=== PATIENT | male | born 1945 | race African-American/Black ===

== ENCOUNTER 2019-03-11 08:20 | Inpatient (IN) ==
--- NOTE | 2019-03-11 08:40 | Diag Imaging Result Doc PS360 ---
CT HEAD W/O CONTRAST - 03/11/2019 INDICATION: ams COMPARISON: 09/11/2017 FINDINGS: There is stable severe diffuse cerebral atrophy. There is stable severe diffuse chronic microvascular ischemia. Stable large area of old encephalomalacia centered at the right parietal lobe. No intracranial mass or hemorrhage. The skull is intact. The sinuses are clear. IMPRESSION: No acute process. This exam was performed using automated exposure control, adjustment of mA or kV according to patient size, and/or use of iterative reconstruction technique Electronically signed by Rai Solomon 03/11/2019 8:37 AM
--- NOTE | 2019-03-11 09:33 | EKG Report ---
Test Performed on : 03/11/2019 08:42:18 AM Test Reason : Stroke like symptoms Blood Pressure : / mmHG Vent. Rate : 076 BPM Atrial Rate : 076 BPM P-R Int : 142 ms QRS Dur : 074 ms QT Int : 374 ms P-R-T Axes : 064 -17 023 degrees QTc Int : 420 ms Normal sinus rhythm. Normal ECG When compared with ECG of 11-SEP-2017 13:08, No significant change was found Unconfirmed Result
--- NOTE | 2019-03-11 09:42 | Diag Imaging Result Doc PS360 ---
EXAM: CHEST-PORTABLE 03/11/2019 HISTORY: stroke like symptoms TECHNIQUE: AP portable at 0937 COMMENT: The inspiration is less optimal than on 10/13/2017. There are some platelike opacity present in the medial left lower lobe. IMPRESSION: Minimal left lower lobe atelectasis. Electronically signed by Ryley Bradford 03/11/2019 9:39 AM
[2019-03-11 10:11] LABS: BASO# 0.04 X1000 (0.0-0.2); BASO% 0.4 % (0.0-0.8); EOS# 0.32 X1000 (0.0-0.7); EOS% 3.5 % (0.0-10.0); HEMATOCRIT 46.1 % (42.0-52.0); HEMOGLOBIN 14.4 g/dL (14.0-18.0); IMM GRAN# 0.02 X1000 (0.0-0.04); IMM GRAN% 0.2 % (0.0-0.5); LYMPH# 1.98 X1000 (1.2-3.4); LYMPH% 21.6 % (20.5-51.1); MCH 28.1 PG (27-31); MCHC 31.2 g/dL (33-37); MCV 89.9 FL (81-99); MONO# 0.49 X1000 (0.11-0.59); MONO% 5.4 % (1.7-9.3); MPV 9.2 FL (7.4-10.4); NEUT% 68.9 % (42.2-75.2); PLT 226 X1000 (130-400); RBC 5.13 XMIL (4.7-6.1); RDW 14.8 % (11.5-14.5); WBC 9.15 X1000 (4.8-10.8)
[2019-03-11 10:58] LABS: ALB/GLOB RATIO 0.9; ALBUMIN 3.5 g/dL (3.5-5.0); CALCIUM 9.3 mg/dL (8.8-10.2); CREATININE 1.5 mg/dL (0.7-1.2); POTASSIUM 5.2 mmol/L (3.5-5.1); TOTAL BILIRUBIN 0.23 mg/dL (0.20-1.00); TOTAL PROTEIN 7.4 g/dL (6.3-8.3)
[2019-03-11 11:55] LABS: INR 1.12; PROTIME 14.6 Seconds (11.0-16.0)
[2019-03-11 11:56] LABS: PTT 36.8 Seconds (22.3-41.8)
--- NOTE | 2019-03-11 13:18 | PROVIDER DOCUMENTATION ---
This chart was entered by Randi Padilla Scribe, acting as scribe for Len Bran MD. HPI-Neurological Disorder - General Chief Complaint: Stroke-Like Symptoms Stated Complaint: AMS Time Seen by Provider: 03/11/19 08:58 Source: patient, family (daughter) Allergies/Adverse Reactions: Patient Allergies Allergy/AdvReac Type Severity Reaction Status Date / Time No Known Allergies Allergy Verified 12/24/18 11:27 Home Medications: Home Medication List Medication Instructions Recorded Confirmed Last Taken Type Clopidogrel [Plavix] 75 mg PO DAILY #0 tablet 09/21/13 03/11/19 03/10/19 09:15 Rx 75 mg PRAVAstatin [Pravachol] 40 mg PO DAILY 05/25/17 03/11/19 03/10/19 09:15 History 40 mg Pantoprazole [Protonix] 40 mg PO QAM 05/25/17 03/11/19 03/10/19 06:00 History 40 mg Aspirin 81 mg PO DAILY chewtab 10/17/17 03/11/19 03/10/19 09:15 Rx 81 mg Cetirizine HCl [Zyrtec] 10 mg PO DAILY 12/24/18 03/11/19 03/10/19 09:15 History 10 mg Ferrous Sulfate [Iron] 325 mg PO DAILY 12/24/18 03/11/19 03/10/19 09:15 History 325 mg Gabapentin 100 mg PO TID 12/24/18 03/11/19 03/10/19 21:00 History Insulin Aspart [Novolog Flexpen] 1 dose SQ PRN PRN 12/24/18 03/11/19 03/11/19 06:25 History 0 units FS 74 Insulin Glargine,Hum.rec.anlog 15 units SQ QHS 12/24/18 03/11/19 03/10/19 21:00 History [Lantus Solostar] 15 units Insulin Glargine,Hum.rec.anlog 40 unit SQ QAM 12/24/18 03/11/19 03/10/19 09:15 History [Lantus Solostar] 40 units Polyethylene Glycol 3350 [Miralax] 1 dose PO DAILY 12/24/18 03/11/19 03/10/19 09:15 History 17 gm Tramadol [Ultram] 50 mg PO Q12H PRN 12/24/18 03/11/19 03/03/19 00:50 History 50 mg Acetaminophen 650 mg PO Q6H PRN PRN 03/11/19 03/11/19 Unknown History Emollient Combination No.114 85 gm TOPICAL BID 03/11/19 03/11/19 03/10/19 21:00 History [Eucerin Advanced Repair] Hydrochlorothiazide 12.5 mg PO DAILY 03/11/19 03/11/19 03/10/19 09:15 History 12.5 mg Magnesium Hydroxide [Milk of 30 ml PO DAILY PRN PRN 03/11/19 03/11/19 Unknown History Magnesia] Meloxicam 7.5 mg PO DAILY 03/11/19 03/11/19 03/10/19 16:31 History 7.5 mg - History of Present Illness-Neuro Nature of Presenting Problem: 73yom presents to ED by EMS from [facility] where he resides cc AMS & new weakness. Daughter is at bedside and reports she was called to the [place] this morning b/c pt wasn't up at 4am as usual and when staff went to check on him he had new weakness by not being able to squeeze their hands or open eyes completely and AMS. Pt denies any pain. Pt has some right side weakness from a previous stroke but no new weakness upon exam. Pt has hx of DM/HTN/CVAx6 and renal insufficiency. Pt is A&Ox3 upon exam. Severity: reports: moderate Onset/Duration: reports: this morning Timing: reports: gone now Context: reports: other (AMS, new weakness) Character of Altered Mental Status: reports: decreased responsiveness Any recent trauma/injury?: reports: none Character of Deficits: reports: new weakness Cognitive Baseline: alert, oriented x3 Associated Symptoms: reports: denies symptoms Similar Symptoms Previously?: Yes Recently seen or treated by another doctor?: No Review of Systems - Adult - REVIEW OF SYSTEMS - ADULT Constitutional: reports: see HPImatthew. denies: chills, fever Eyes: reports: no symptoms reported Ears, Nose, Mouth & Throat: reports: no symptoms reported Cardiovascular: reports: see HPI. denies: chest pain, palpitations Respiratory: reports: see HPI. denies: shortness of breath, wheezing Gastrointestinal: reports: no symptoms reported Genitourinary: reports: no symptoms reported Musculoskeletal: reports: no symptoms reported Integumentary: reports: no symptoms reported Neurological: reports: see HPI, other (AMS, new weakness). denies: slurred speech Psychiatric: reports: no symptoms reported Endocrine: reports: no symptoms reported Hematologic/Lymphatic: reports: no symptoms reported Allergic/Immunologic: reports: no symptoms reported All Other Systems: Reviewed and Negative Past History - Adult - PAST MEDICAL HISTORY-ADULT Review of Records: reports: Old Records Reviewed, Nursing Assessment Review, Medications Reviewed, Social history reviewed & non-contributory. Major Childhood Illnesses: reports: denies history Cardiovascular: reports: HTN, hyperlipidemia Respiratory: reports: denies history Gastrointestinal: reports: denies history Obstetrical/Gynecological: reports: denies history Genitourinary: reports: prostate cancer Musculoskeletal: reports: denies history Neurological: reports: CVA, stroke deficits, TIA Endocrine/Immune: reports: Diabetes Other Conditions: reports: denies history - PRIOR SURGERIES/PROCEDURES Surgical/Procedure History: reports: other - PRIOR HOSPITALIZATIONS Prior Hospitalizations: reports: for similar symptoms - IMMUNIZATION STATUS Childhood Immunizations: See Nurse Assessment Flu Vaccine: See Nurse Assessment - FAMILY HISTORY Family History: reviewed, not pertinent - SOCIAL HISTORY Smoking: quit greater than 1 year Physical Exam- Neurological - Physical Exam-Neuro Initial Vital Signs Reviewed: Yes General Appearance: appears well, alert, no apparent distress. negative: anxious, combative Eye Exam: bilateral eye: normal inspection, PERRL HENMT: normocephalic/atraumatic, moist mucous membranes. negative: angioedema Head Injury: no evidence of injury. negative: active bleeding, Christine's Sign, contusions, ecchymosis, raccoon eyes Neck: normal inspection Respiratory: chest non-tender, lungs clear, normal breath sounds. negative: crackles, rhonchi, wheezing Cardiovascular: normal peripheral pulses, regular rate, rhythm, no edema. negative: bradycardia, tachycardia Abdominal Exam: normal bowel sounds, non tender, soft. negative: guarding, rigid, rebound Extremity: normal inspection. negative: deformity graphic manager Exam: normal hearing, normal speech, PERRL, other (unchanged from baseline) Motor/Sensory: no sensory deficit, no pronator drift Neurologic: graphic manager II-XII nml as tested, grossly normal. negative: facial droop Integumentary: normal color. negative: diaphoresis, jaundice Psych/Mental Status: normal mood/affect, oriented x 3. negative: anxious, disheveled - Glascow Coma Scale Best Eye Response: (4) open spontaneously Best Verbal Response: (5) oriented Best Motor Response: (6) obeys commands Total Glascow Score: 15 Progress - PLAN OF CARE/RESULTS Progress/Plan/Lab Results: Vital Signs - 8 hr 03/11/19 08:37 Temperature 97.8 F Pulse Rate 80 Respiratory Rate 22 Blood Pressure 155/80 O2 Sat by Pulse Oximetry 98 Laboratory Results - last 24 hr 03/11/19 03/11/19 03/11/19 09:00 10:06 10:06 WBC 9.15 RBC 5.13 Hgb 14.4 Hct 46.1 MCV 89.9 MCH 28.1 MCHC 31.2 L RDW Std Deviation 14.8 H Plt Count 226 MPV 9.2 Immature Gran % (Auto) 0.2 Neut % (Auto) 68.9 Lymph % (Auto) 21.6 Milam % (Auto) 5.4 Eos % (Auto) 3.5 Baso % (Auto) 0.4 Immature Gran # (Auto) 0.02 Neut # (Auto) 6.30 Lymph # (Auto) 1.98 Milam # (Auto) 0.49 Eos # (Auto) 0.32 Baso # (Auto) 0.04 PT INR PTT (Actin FS) Sodium 140 Potassium 5.2 H Chloride 108 H Carbon Dioxide 18 L Anion Gap 14 BUN 20 Creatinine 1.5 H Estimated GFR/1.73 m2 55 BUN/Creatinine Ratio 13 Glucose 77 POC Glucose 81 Calculated Osmolality 281 Calcium 9.3 Total Bilirubin 0.23 AST 20 ALT 9 L Alkaline Phosphatase 99 Troponin T High Sens Total Protein 7.4 Albumin 3.5 Globulin 3.9 Albumin/Globulin Ratio 0.9 03/11/19 03/11/19 10:06 11:37 WBC RBC Hgb Hct MCV MCH MCHC RDW Std Deviation Plt Count MPV Immature Gran % (Auto) Neut % (Auto) Lymph % (Auto) Milam % (Auto) Eos % (Auto) Baso % (Auto) Immature Gran # (Auto) Neut # (Auto) Lymph # (Auto) Milam # (Auto) Eos # (Auto) Baso # (Auto) PT 14.6 INR 1.12 PTT (Actin FS) 36.8 Sodium Potassium Chloride Carbon Dioxide Anion Gap BUN Creatinine Estimated GFR/1.73 m2 BUN/Creatinine Ratio Glucose POC Glucose Calculated Osmolality Calcium Total Bilirubin AST ALT Alkaline Phosphatase Troponin T High Sens 35 H* Total Protein Albumin Globulin Albumin/Globulin Ratio Orders Category Date Time Status Cardiac Monitoring DIRECTED Care 03/11/19 09:23 Active Finger Stick Blood Sugar (ED) DIRECTED Care 03/11/19 09:23 Completed Oxygen Therapy- ED Nursing DIRECTED Care 03/11/19 09:23 Active Saline Loc NOW Care 03/11/19 09:23 Active CHEST-PORTABLE [RAD] Stat Exams 03/11/19 09:[address] HEAD W/O CONTRAST [CT] Stat Exams 03/11/19 08:24 Completed CBC WITH ELECTRONIC DIFF [HEME] Stat Lab 03/11/19 10:06 Completed COMPREHENSIVE METABOLIC PANEL [CHEM] Stat Lab 03/11/19 10:06 Completed POTASSIUM [CHEM] Stat Lab 03/11/19 13:18 Uncollected PROTIME WITH INR [COAG] Stat Lab 03/11/19 11:37 Completed PTT [COAG] Stat Lab 03/11/19 11:37 Completed TROPONIN T HIGH SENSITIVITY Stat Lab 03/11/19 10:06 Completed URINALYSIS W/POSS RFLX CULT [URINALYSIS] Stat Lab 03/11/19 09:23 Uncollected URINE DRUG SCREEN Stat Lab 03/11/19 09:23 Uncollected Aspirin Med 03/11/19 13:19 Discontinued 325 mg PO NOW ONE EKG [EKG] Stat Ther 03/11/19 09:23 Draft At recheck, pt denied any other symptoms and feels back to normal. Family noted that he seems back to normal as well. Result Diagrams: 03/11/19 10:06 03/11/19 10:06 - EKG 1 Time of EKG reading by physician:: 08:42 EKG Read and Signed by:: Len Bran EKG Interpretation (*Must complete 3 of following elements*): Normal Rate: 76 Rhythm: NSR QRS: normal [place] Interval: normal - XRAY 1 XRAY: Bilateral XRAY Study: Chest Impression: See EMR Report (IMPRESSION: Minimal left lower lobe atelectasis. Electronically signed by Ryley Bradford 03/11/2019 9:39 AM) - CT/MRI 1 CT Study: Head Impression: See EMR Report (IMPRESSION: No acute process. This exam was performed using automated exposure control, adjustment of mA or kV according to patient size, and/or use of iterative reconstruction technique Electronically signed by Rai Solomon 03/11/2019 8:37 AM 03/11/19 0837) - CONSULTS/PCP/HOSPITALIST Notification #1 *Consult/PCP/Hospitalist*: Kisha Heredia Time Discussed: 13:16 Consult Disposition: Will see in ED, Admit Departure - Departure Date of Disposition Decision: 03/11/19 Time of Disposition Decision: 13:16 DIAGNOSIS: TIA (transient ischemic attack), Hypertension, Hyperkalemia, Renal insufficiency, Elevated troponin Disposition: ADMITTED INPATIENT 09 Certified Medical Emergency: Emergent Condition: Fair Referrals and Follow-Ups: Elizabeth Urena MD [Primary Care Provider] - - Critical Care Note This patient required my direct & personal management of CC.: No Attestation - Physician/ NIKOLAY Attestation Patient care was provided by Advanced Practice Provider:: No The physician spent face to face time with patient:: Yes Advanced Practice Provider documentation review:: Supervising physician onsite and consulted in the evaluation and care of this patient. The physician did have a face to face encounter with the patient. This chart was documented by the indicated scribe, (Randi Padilla Scribe) and accurately reflects the services I performed and decisions made by me, Len Bran MD, as attested by the provider's signature.
[2019-03-11] MEDS ORDERED: ASPIRIN PO ONE (13:19)
[2019-03-11 14:12] LABS: URINE SOURCE CLEAN CATCH
[2019-03-11 14:19] LABS: BILIRUBIN URINE NEGATIVE (NEGATIVE); BLOOD URINE NEGATIVE (NEGATIVE); COLOR YELLOW; GLUCOSE URINE NEGATIVE (NEGATIVE); KETONE URINE NEGATIVE (NEGATIVE); LEUKOCYTES URINE NEGATIVE (NEGATIVE); NITRITE URINE NEGATIVE (NEGATIVE); PH URINE 6.5; PROTEIN URINE NEGATIVE (NEGATIVE); SP GRAVITY URINE 1.015; TURBIDITY URINE CLEAR (CLEAR); UR EPITHELIAL CELLS <10 /HPF (<10); URINE BACTERIA NEGATIVE /HPF; URINE RBC <10 /HPF (<10); URINE WBC <10 /HPF (<10); UROBILINOGEN URINE NORMAL (NORMAL)
[2019-03-11 14:28] LABS: UR AMPHETAMINES QUAL NONE DETECTED (NONE DETECT); UR BARBITUATES QUAL NONE DETECTED (NONE DETECT); UR BENZODIAZEPIN QUAL NONE DETECTED (NONE DETECT); UR CANNABINOIDS QUAL NONE DETECTED (NONE DETECT); UR COCAINE QUAL NONE DETECTED (NONE DETECT); UR METHADONE QUAL NONE DETECTED (NONE DETECT); UR OPIATES QUAL NONE DETECTED (NONE DETECT); UR OXYCODONE QUAL NONE DETECTED (NONE DETECT); UR PCP QUAL NONE DETECTED (NONE DETECT)
--- NOTE | 2019-03-11 14:42 | HISTORY AND PHYSICAL ---
CHIEF COMPLAINT: Difficulty awakening this morning and responding appropriately per intermediate staff. HISTORY OF PRESENTING ILLNESS: This is a 73-year-old male who presents to [facility] via EMS after nursing staff went to wake him up this morning around 4:30 a.m. and he would not wake up, was difficult to arouse, and had unequal pupils at that time, so they called EMS as he has a history of CVA x6 in the past. Workup showed on arrival, vital signs were stable. CT of the head showed no acute process. He is alert and awake and answers questions appropriately at this time with no change in his baseline. But he will be admitted for further evaluation and treatment to rule out TIA versus CVA. PAST MEDICAL HISTORY: Multiple CVAs with right-sided hemiparesis, diabetes type 2, hypertension, dyslipidemia, history of prostate cancer, chronic kidney disease. PAST SURGICAL HISTORY: Bilateral knee replacements, prostatectomy, and an excision of a benign scrotal skin lesion from a nonhealing ulcer. FAMILY HISTORY: Diabetes and an PR. SOCIAL HISTORY: He currently resides at a local intermediate. He is a former smoker, former alcohol use, none currently on either, and no illicit drugs. ALLERGIES: He has no known drug allergies. HOME MEDICATIONS: Current list will be obtained, reconciled, reviewed, and restarted as appropriate. Will place an order for nursing to update and confirm home medications. LABORATORY DATA: Showed a white blood cell count of 9.15, hemoglobin 14.4, hematocrit 46.1, platelets 226,000. PT and INR of 14.6 and 1.12. Sodium 140, potassium 5.2, chloride 108, CO2 18, BUN of 20, creatinine 1.5 which appears to be at his baseline, glucose 77. CT of the head showed no acute process. Chest x-ray showed minimal left lower lobe atelectasis. EKG normal: Sinus rhythm, 76. REVIEW OF SYSTEMS: Denies any fever, chills, blurred vision, dizziness, chest pain, coughing, shortness of breath. Denies any abdominal pain, nausea, vomiting, constipation, diarrhea, burning or hurting with urination. PHYSICAL EXAMINATION: VITAL SIGNS: On arrival he had a temperature of 97.8 degrees, pulse 80, respirations 22, blood pressure 155/80, saturating 98% on room air. GENERAL: This is a 73-year-old male who is sitting up in the bed. Answers questions appropriately. HENT: Normocephalic, atraumatic. Normal ENT inspection. Oropharynx and nares are clear. EYES: Pupils are equal, round, reactive to light and accommodation. Extraocular movements are intact. NECK: Normal inspection. Normal range of motion. LUNGS: Clear to auscultation bilaterally with equal lung expansion and chest wall movement. HEART: Regular rate and rhythm. No murmurs, rubs, or gallops. ABDOMEN: Soft, nontender, nondistended. Bowel sounds are present x4 quadrants. MUSCULOSKELETAL: He does have a right-sided hemiparesis from previous CVA. Otherwise, no acute findings noted. NEUROLOGICAL: The cranial nerves 2-12 appear grossly intact and at baseline for this patient. Again, he has right-sided hemiparesis from a previous CVA. ASSESSMENT: 1. Transient ischemic attack versus cerebrovascular accident. 2. Hypertension. 3. Diabetes type 2. 4. Hyperlipidemia. PLAN: He will be admitted, placed on telemetry, O2 per protocol, neuro checks q.4 hours x24 hours. We will consult physical therapy and social sciences instructor for discharge planning. Place on mechanical soft diet. We will check an echocardiogram, a carotid ultrasound, an MRI of the brain with and without contrast, and recheck labs in the a.m. Further orders after seen by attending. Dictated by EUSEBIO Sorto for Alan Heredia MD cc: EUSEBIO Sorto MD
[2019-03-11] MEDS ORDERED: TYLENOL PO PRN (15:32)
[2019-03-11] MEDS ORDERED: INSULIN ASPART SQ PRN (15:32)
[2019-03-11] MEDS ORDERED: MILK OF MAGNESIA PO PRN (15:32)
--- NOTE | 2019-03-11 16:29 | Diag Imaging Result Doc PS360 ---
MRI BRAIN W/WO CONTRAST - 03/11/2019 INDICATION: stroke COMPARISON: Head CT 03/11/2019 FINDINGS: There is no area of restricted diffusion. There is advanced diffuse cerebral atrophy. There is advanced diffuse cerebral white matter hyperintensity compatible with chronic microvascular ischemia. Stable area of old encephalomalacia centered at the right parietal lobe. No intracranial mass or hemorrhage. There is no abnormal contrast enhancement. IMPRESSION: No acute process. Advanced chronic ischemic changes of the brain. Electronically signed by Rai Solomon 03/11/2019 4:27 PM
[2019-03-11] MEDS ORDERED: NS 1,000 ML IV ONE (16:57)
--- NOTE | 2019-03-11 17:54 | PROGRESS NOTE ---
DATE: 03/11/2019 SUBJECTIVE: The patient presented with dysarthria and weakness in his right arm. He has had multiple CVAs in the past reportedly, a total of 6 by report, with persistent right-sided hemipareses. OBJECTIVE: His exam today, he still has weakness in his right arm. He still has dysarthria, but I cannot tell how far from baseline he is. He does answer questions appropriately. Workup, everybody was there. I do not see any new deficits per se. ASSESSMENT AND PLAN: His MRIs are already negative, which is consistent with a transient ischemic attack versus true cerebrovascular accident. He does have a mild elevation in his troponin and creatinine, so we are going to get a little bit more information here and see if we can get things adjusted. Gentle hydration. cc: Alan Heredia MD
[2019-03-11] MEDS: ULTRAM PO PRN (21:48)
[2019-03-11] MEDS: LANTUS INSULIN SUBQ SCH (21:53)
[2019-03-11] MEDS: NEURONTIN PO SCH (21:53)
[2019-03-11] MEDS: EUCERIN CREAM TOP SCH (21:53)
[2019-03-12 07:47] LABS: AGAP 9; BUN 18 mg/dL (8-22); CALCIUM 9.1 mg/dL (8.8-10.2); CHLORIDE 108 mmol/L (98-107); COSMO 279; CREATININE 1.3 mg/dL (0.7-1.2); ESTIMATED GFR > 60; GLUCOSE 57 mg/dL (70-104); POTASSIUM 4.8 mmol/L (3.5-5.1); SODIUM 140 mmol/L (136-145); TCO2 23 mmol/L (25-35)
[2019-03-12 08:05] LABS: BASO# 0.04 X1000 (0.0-0.2); BASO% 0.5 % (0.0-0.8); EOS# 0.48 X1000 (0.0-0.7); HEMATOCRIT 40.6 % (42.0-52.0); HEMOGLOBIN 12.7 g/dL (14.0-18.0); LYMPH# 2.52 X1000 (1.2-3.4); LYMPH% 31.4 % (20.5-51.1); MCH 27.7 PG (27-31); MCHC 31.3 g/dL (33-37); MCV 88.5 FL (81-99); MONO# 0.52 X1000 (0.11-0.59); MONO% 6.5 % (1.7-9.3); MPV 9.4 FL (7.4-10.4); NEUT# 4.47 X1000 (1.4-6.5); NEUT% 55.6 % (42.2-75.2); PLT 334 X1000 (130-400); RBC 4.59 XMIL (4.7-6.1); RDW 14.6 % (11.5-14.5); WBC 8.03 X1000 (4.8-10.8)
[2019-03-12 08:11] LABS: HEMOGLOBIN A1C 8.6 % (4.8-6.0)
[2019-03-12] MEDS ORDERED: HYDROCHLOROTHIAZIDE PO SCH (09:00)
[2019-03-12] MEDS ORDERED: MOBIC PO SCH (09:00)
[2019-03-12] MEDS ORDERED: PRAVACHOL PO SCH (09:00)
[2019-03-12] MEDS ORDERED: MIRALAX PO SCH (09:00)
[2019-03-12] MEDS: PLAVIX PO SCH (10:14)
[2019-03-12] MEDS: ASPIRIN PO SCH (10:15)
[2019-03-12] MEDS: ZYRTEC PO SCH (10:15)
[2019-03-12] MEDS: FERROUS SULFATE PO SCH (10:15)
[2019-03-12] MEDS: PROTONIX PO SCH (10:16)
[2019-03-12] MEDS: EUCERIN CREAM TOP SCH ×2 (10:16→21:05)
[2019-03-12] MEDS: LANTUS INSULIN SUBQ SCH ×3 (10:17→21:05)
[2019-03-12] MEDS: NEURONTIN PO SCH ×3 (10:29→21:05)
--- NOTE | 2019-03-12 13:31 | ECHO REPORT ---
ORDER DATE: 03/11/2019 MEASUREMENTS: Septal thickness 1.1, left ventricular internal diameter in diastole 4.4, posterior wall thickness 1.0, left ventricular internal diameter in systole 2.8, aortic root 2.9, left atrium 3.0. SUMMARY: 1. Fair quality study. 2. Aortic valve is trileaflet and demonstrates very mild sclerosis, and opens normally on 2- dimensional images. Peak gradient across the aortic valve is approximately 10 mmHg. Mitral, tricuspid, and pulmonic valves are without evidence of structural abnormality with trace mitral regurgitation. The aortic root is normal in size. 3. Normal left ventricular dimensions demonstrated. The estimated left ventricular ejection fraction appears to be at least 65%. No regional wall motion abnormalities are evident. Left atrium, right atrium, and right ventricle are normal in size with grossly preserved right ventricular systolic function. 4. No pericardial effusion. 5. Appearance of inferior vena cava suggests normal central venous pressure. CONCLUSIONS: 1. Very mild aortic valve sclerosis without stenosis. 2. Normal left ventricular systolic function without regional wall motion abnormality evident. cc: MD Kisha Hammond CRNP
--- NOTE | 2019-03-12 16:30 | PROGRESS NOTE ---
DATE: 03/12/2019 SUBJECTIVE: The patient has no complaints. I think he is back to baseline. OBJECTIVE: Vital Signs: Blood pressure 139/70, heart rate of 99, respiratory rate of 21, temperature of 98.6 degrees. Cardiovascular: Regular rate and rhythm. Pulmonary: Bilateral breath sounds. Clear to auscultation. GI: Soft, nontender, nondistended. Bowel sounds are positive. LABORATORY DATA: White count is 8, hemoglobin and hematocrit 12 and 40, platelets 334, creatinine 1.3. LDL is 100. PROBLEM LIST: 1. Transient ischemic attack. There is no evidence of cerebrovascular accident based on his imaging. He is really kind of maxed out on all the medications he could be maxed out on. His glucose was a bit low. LDL is 100. He is on pravastatin, so we will switch him to Lipitor which is what he should be on any case. Maybe, he was intolerant to Lipitor. In any case we will do that. 2. Diabetes. His blood sugars are actually pretty well controlled. We will continue to monitor his A1c is 8.6, which suggests poor control. He should not be on Mobic with renal insufficiency, so we need to stop that. DISPOSITION: Pending clinical status, but anticipate discharge soon. I will get a neurology consult just to make sure that we are not missing any other things related to his recurrent CVA. cc: Alan Heredia MD
[2019-03-12] MEDS ORDERED: LIPITOR PO SCH (21:00)
[2019-03-12] MEDS: ULTRAM PO PRN (21:05)
[2019-03-13] MEDS: PROTONIX PO SCH (06:46)
--- NOTE | 2019-03-13 08:24 | Carotid Study ---
DATE: 03/11/2019 PROCEDURE: This is the bilateral duplex and color flow imaging the carotid arteries performed using the GE Vivid E9 ultrasound system with a 9 L-D transducer. REFERRING PROVIDER: Diana. READING PHYSICIAN: Dr. Juarez. FRONTEND ENGINEER: Yessenia Yen RVT. INDICATIONS: Transient ischemic attack. FINDINGS: The velocities in cm/sec of both carotid systems were reviewed. There is antegrade flow in the right vertebral artery. The right ICA/CCA ratio was 0.69 corresponding to a percent stenosis of 0 to 39 percent. The left ICA/CCA ratio 0.71 corresponding to a percent stenosis of 0 to 39 percent. INTERPRETATION: Mild atherosclerotic disease of the distal common and internal carotid arteries bilaterally without evidence of a hemodynamically significant lesion in either carotid system when compared to a previous study performed. cc: MD Kisha Portillo CRNP
[2019-03-13] MEDS: ASPIRIN PO SCH (08:44)
[2019-03-13] MEDS: NEURONTIN PO SCH ×2 (08:44→15:58)
[2019-03-13] MEDS: PLAVIX PO SCH (08:44)
[2019-03-13] MEDS: ZYRTEC PO SCH (08:44)
[2019-03-13] MEDS: FERROUS SULFATE PO SCH (08:44)
[2019-03-13] MEDS: EUCERIN CREAM TOP SCH (08:45)
[2019-03-13] MEDS: LANTUS INSULIN SUBQ SCH (08:45)
[2019-03-13] MEDS ORDERED: MIRALAX PO SCH (09:00)
[2019-03-13 11:46] VITALS: BP 131/67
--- NOTE | 2019-03-13 12:34 | DISCHARGE SUMMARY ---
ADMISSION DATE: 03/11/2019 DISCHARGE DATE: 03/13/2019 PRIMARY CARE PHYSICIAN: Dr. Elizabeth Urena. ADMISSION DIAGNOSES: 1. Transient ischemic attack versus cerebrovascular accident. 2. Hypertension. 3. Diabetes type 2. 4. Hyperlipidemia. DISCHARGE DIAGNOSES: 1. Transient ischemic attack with no evidence of cerebrovascular accident based on imaging. 2. Diabetes. SUMMARY OF FINDINGS: This is a 73-year-old male who presented to the ER via EMS from [facility] after the staff went to wake him up around 4:30 a.m. and he would not wake up, was difficult to arouse, had unequal pupils at that time, so they called EMS. He has had 6 CVAs in the past. When he was admitted, he was alert, awake, answering questions appropriately. We did a brain MRI that showed no acute process, advanced chronic ischemic changes of the brain. Echocardiogram showed an ejection fraction of 65% with normal left ventricular dimensions demonstrated. We did a bilateral carotid Doppler that showed mild atherosclerotic disease of the distal common and internal carotid arteries bilaterally without evidence of hemodynamically significant lesions in either carotid system when compared with previous study. He was continued on his home medications and it is now felt that he can safely be discharged back to detention facility. DISCHARGE MEDICATIONS: Acetaminophen 650 mg p.o. q.6 hours p.r.n., aspirin 81 mg p.o. daily, cetirizine 10 mg p.o. daily, Plavix 75 mg p.o. daily, Eucerin cream topically b.i.d., ferrous sulfate 325 mg p.o. daily, gabapentin 100 mg p.o. t.i.d., NovoLog FlexPen subcutaneous p.r.n., Lantus SoloStar 40 units subcutaneous q.a.m. and 15 units subcutaneous at bedtime, milk of magnesia 30 mL daily p.r.n., pantoprazole 40 mg p.o. q.a.m., MiraLAX 17 g p.o. daily, tramadol 50 mg p.o. q.12 hours p.r.n., #30 with no refills, hydrochlorothiazide 12.5 one p.o. daily, meloxicam 7.5 mg p.o. daily, pravastatin 40 mg p.o. daily. FOLLOWUP: He will need to follow up with facility physician and with his primary care. TIME SPENT: This a 35 minute discharge. Dictated by EUSEBIO Sorto for Alan Heredia MD cc: EUSEBIO Sorto MD Lindsay E. Smith, MD
[2019-03-13] MEDS ORDERED: PNEUMOVAX 23 IM ONE (12:36)
--- NOTE | 2019-03-13 12:41 | DISCHARGE SUMMARY ---
ADMISSION DATE: 03/13/2019 DISCHARGE DATE: ADDENDUM: Discharge diagnosis was transient ischemic attack versus possible seizure. Today, looks about at baseline. He has got persistent right-sided weakness. He seems to be doing okay otherwise. His workup has been negative. Negative MRI for acute process. Echo, carotid, all that looked good, and then I have asked Neurology to evaluate prior to discharge, and I think they have ordered an EEG, so wait on that, but if that looks stable, I think we could probably send him out with further recommendations per Neurology. cc: Alan Heredia MD
--- NOTE | 2019-03-13 15:41 | CONSULTATION ---
DATE OF CONSULTATION: 03/13/2019 HISTORY: Mr. Stevens is 73 years old and he had recent episode with question of neurologic event. History from the patient is that he is doing well and does not recall any problems. The attentive at the bedside reports seeing him have an episode of sudden unresponsiveness with fixed blank stare, inattention for several minutes followed by sleeping. Later, he seemed to have no recollection of this episode. reports longterm staff has told her of several similar episodes in recent months. Neurologic history goes back to more than 10 years ago when he had 1st apparent stroke event causing speech disturbance. 's history sounds like dysarthria more than dysphasia. There was not a clear focal motor deficit then, by her report. He made recovery back to baseline. He had some further episodes of skew gaze, dysconjugate gaze, facial asymmetry, possibly weakness and clumsiness. cannot recall specifically what focal features may have been present. These were attributed to "mini strokes" and he seemed to recover. At least one episode of prior reported stroke event caused temporary blindness. I cannot tell from history provided today whether this was focal visual field loss or poor acuity. 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 He made minimal recovery and has been in a longterm in recent years. He has had occasional headache. Sometimes he grabs his head according to . There is not history of head trauma. He has risk factors for cerebrovascular ischemic problems including diabetes mellitus type 2, hypertension, dyslipidemia. Workup this admission includes brain MRI done with and without contrast showing significant atrophy and diffuse white matter changes bilaterally with some old encephalomalacia in the right parietal lobe. There is no evidence of acute infarction. Carotid ultrasound shows no hemodynamically significant stenosis bilaterally. Urine drug screen was negative. Chemistry was okay. I do not see anything else remarkable on the admission lab. PHYSICAL EXAMINATION: He has been afebrile. Initial systolic blood pressures were 140s-150s. Recent systolic blood pressures have been 110s-130s. On exam, Mr. Stevens is awake, alert, attentive. He answered questions appropriately. Speech is minimally dysarthric but easily understood. I do not find definite language deficit on bedside testing. Remote memory is fair. Recent memory is poor. He is oriented well to place and very poorly to time. I did not test his cognitive function more thoroughly. He has full visual field tested grossly by confrontational finger counting. Extraocular movements are full. Facial motility is diminished on the right in an upper motor neuron pattern. Tongue is midline. He can hear. Shoulder shrug is diminished on the right. He used his left arm and leg purposefully. He did not use his right arm spontaneously. When I asked him to raise his right arm, he made obvious effort and there was very coarse shaking in the right arm as he elevated it clumsily. He did well with left [id number]. He was not able to perform right [id number]. He reports diminished pinprick appreciation in a stocking and glove pattern bilaterally, more dense deficit over the legs. Proprioception is poor at the right great toe MTP joint and good at the left great toe MTP joint. Reflexes are absent at the ankles. Plantar response is silent bilaterally. I did not test his gait. IMPRESSION: 1. Recent episodes of blank stare, apparent altered awareness. There is concern for seizure. I will order EEG and further plans will depend on that report. I am reluctant to add medicine for seizure control in light of his extensive preadmission medication list, and I think we can make a decision about that after EEG. 2. Right hemiparesis. This is likely due to infarction and there are multiple potential left hemisphere and brainstem areas that may account for that. 3. 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 I cannot find a definite visual field cut or other deficit to attribute to that lesion. 4. Risk factors for cerebrovascular ischemic problems including age, previous stroke, diabetes mellitus, hypertension, dyslipidemia. These are being managed. I do not have any other suggestion right now. Thanks for asking Neurology to see Mr. Stevens. cc: Em Gregory III, MD [facility]PITALAamir
--- NOTE | 2019-03-19 18:40 | EEG REPORT ---
DATE: 03/13/2019 REFERRING PHYSICIAN: Dr. Gregory PERSONNEL OFFICER: Blaze Sneed. BACKGROUND INFORMATION/TECHNIQUE: This is a digitally recorded routine EEG with video. HISTORY: A 73-year-old male patient with altered mental status. EEG is ordered to detect evidence of seizures. EEG FINDINGS: A posterior dominant alpha rhythm is not seen. The background consists of primarily theta, rare delta slowing and intermixed faster frequencies. No definite persistent focal slowing. No epileptiform discharges. No seizures. Hyperventilation was not performed. Photic stimulation does not alter the record. No definite drowsiness patterns. Stage N2 sleep is not seen. EKG demonstrates regular intervals. IMPRESSION/CLINICAL CORRELATION: Abnormal routine EEG due to [id number] generalized slowing indicative of a mild to moderate nonspecific encephalopathy. No epileptiform discharges or seizures seen on the current study. This does not rule out an underlying seizure disorder. cc: MD Em Montemayor III, MD
== END 2019-03-13 19:51 | DRG 101 ==
LOC: SUPCPDRO → ED 08:20 → INTOOBSV 14:10 → 3N 14:10
PROVIDERS: ATTEND Internal Medicine